=== PATIENT | male | born 2000 | race Caucasian/White ===

== ENCOUNTER 2024-12-09 23:44 | Emergency (ER) | payer BC, SELFPAY ==
[2024-12-09 23:45] VITALS: BP 130/88
--- NOTE | 2024-12-10 01:30 | ED.GENMED ---
History of Present Illness
General
Chief Complaint: Musculo-Skeletal Complaint
Source: patient and family
Exam Limitations: none
Time Seen by Provider: 12/10/24 00:50
Nursing documentation reviewed up to this point in time: agreed with
History of Present Illness
History of Present Illness:
24-year-old male presenting to the emergency department today after twisting his right knee while playing hockey prior to arrival. Has been able to ambulate but initially had some significant discomfort. Noticed mild swelling to the area and
denies numbness weakness or additional injuries
Past History
Past History
ED Past Medical History: Other (Eye surgery)
Social History
Tobacco: Non-smoker
Review of Systems
Review of Systems
Allergies reviewed?: Yes
All Other Systems: ROS reviewed and negative except as documented in HPI and ROS
Phy Exam
Physical Exam
Physical Exam:
GENERAL: Alert , in no apparent distress
EYE: pupils equal and reactive
NECK: Supple, no significant adenopathy.
ENT: o/p clr, mmm.
CARDIAC: Regular rate and rhythm .
LUNGS: Clear breath sounds bilaterally, no acute respiratory distress, no wheezes/rales/rhonchi
ABDOMEN: Soft, without focal tenderness, no r/g, no cvat
NEUROLOGICAL: Alert and oriented, no focal neuro deficits
SKIN: Warm and dry, skin intact.
MUSCULOSKELETAL: No edema, well perfused. Mild swelling to the right knee no point tenderness no joint laxity good range of motion
PSYCH: Normal and appropriate interaction.
Course
Orders/Labs/Results
Orders:
Orders
12/10/24 00:00
CR Knee- Right 4 Or More View* Urgent
Reason For Exam: ROLLER HOCKEY INJURY
12/10/24 01:29
Knee Immobilizer Right-Treatme ONCE
Acetaminophen [Tylenol] 1,000 mg PO NOW STA
Vital Signs
Initial and Last Documented VS:
Initial Vital Signs
Temp Pulse Resp BP Pulse Ox
98.4 F 88 20 130/88 98
12/09/24 23:45 12/09/24 23:45 12/09/24 23:45 12/09/24 23:45 12/09/24 23:45
Last Documented Vital Signs
Temp Pulse Resp BP Pulse Ox
98.4 F 88 20 130/88 98
12/09/24 23:45 12/09/24 23:45 12/09/24 23:45 12/09/24 23:45 12/09/24 23:45
MDM/Problems Addressed
MDM/Problems Addressed:
24-year-old male presenting to the emergency department today with concerns of right knee pain after twisting his knee playing hockey prior to arrival. He is able to ambulate here and move no bony tenderness x-ray without signs of fracture.
Patient with likely internal knee injury patient was given a knee brace advised for orthopedic follow-up. Return precautions given.
*Critical Care Note
Total Time (30-74mins, 75-104mins- exclusive of procedures): Not Applicable
ED Attending Note
-
Portions of this chart may have been created with voice recognition software.� Occasional wrong word or��sound alike� substitutions may have occurred due to the inherent limitations of voice recognition software.
Discharge Plan
Departure
Patient Disposition: Home (Routine Discharge)
Date of Disposition: 12/10/24
Time of Disposition: 01:31
Patient with high blood pressure during this ER visit?: No
Condition: Good
Covid-19: Not Applicable
Discharge Problem:
Knee sprain
Instructions: Sprain (DC)
Prescriptions:
No Action
melatonin [Melatin] 3 MG tablet
3 mg PO HS
methylprednisolone [Medrol (Luca)] 4 MG tablets,dose pack
4 tab PO . DIRECT Qty: 1 0RF
dicyclomine 10 mg capsule
10 mg PO QID PRN (Reason: abdominal pain) Qty: 30 0RF
Referrals:
Mp Cohen MD [Active] - Follow up in 5-7 days
UNKNOWN - PT DOES,NOT KNOW [Family Provider] -
Activity Restrictions/Additional Instructions:
You came to the emergency department today with concerns of knee pain. Here you had a normal x-ray. You likely of an internal knee injury. Please follow closely with Ortho. Return for any worsening, new or concerning symptoms.
Interventions
Interventions:
*Risk Screen - Suicide Last Done: 12/09/24 23:45
*Neglect/Abuse Screening Last Done: 12/09/24 23:45
*ED- Fall Risk Assessment Last Done: 12/10/24 00:05
*ED COVID-19 Vaccine History Last Done: 12/10/24 00:05
Discharge Date and Time
Print Language: CROATIAN
[2024-12-10] MEDS: TYLENOL 1000 MG PO (01:38)
== END 2024-12-10 02:14 | disposition home or self-care (01) ==
LOC: EMR 23:44
PROVIDERS: EMERGENCY PHYSICIAN Emergency Medicine
DX: S83.91XA Sprain of unspecified site of right knee, initial encounter (principal); X50.1XXA Overexertion from prolonged static or awkward postures, initial encounter; Y93.89 Activity, other specified
CPT/HCPCS: 99283; 29505; 73564